=== PATIENT | female | born 1945 | race Hispanic/Latino ===

== ENCOUNTER → 2019-12-16 | Outpatient (CLI) | payer OTHER ==
[~2019-12-16] MED LIST: AMLO2.5T4 PO; CEFU500T67 PO; FLUT16H NS; LISI1TAB28 PO; METF-444 PO; MONT10TA26 PO; OMEP20CA12 PO; PREG50 PO; SITA50TA PO; TRAV2.5D OU
== END | disposition home or self-care (01) ==
LOC: OIH 14:39
PROVIDERS: ATTEND Internal Medicine
DX: M06.4 Inflammatory polyarthropathy (principal)
CPT/HCPCS: 73130

== ENCOUNTER 2023-12-04 14:57 | Emergency (ER) | payer OTHER ==
[~2023-12-04] VITALS: Ht 152.4 cm; Wt 83.5 kg
[~2023-12-04 14:57] MED LIST changes: -LISI1TAB28 PO; +LISI1TAB51 PO; +MONT-39 PO; -MONT10TA26 PO
[2023-12-04] MEDS ORDERED: KETO10TA2 PO (18:24)
[2023-12-04 19:04] VITALS: BP 140/72; PULSE 88; RESP 18; O2SAT 100
== END 2023-12-04 19:10 | disposition home or self-care (01) ==
LOC: EDH 14:57
DX: M25.551 Pain in right hip (principal); I10 Essential (primary) hypertension; E11.9 Type 2 diabetes mellitus without complications; E78.00 Pure hypercholesterolemia, unspecified; Z79.84 Long term (current) use of oral hypoglycemic drugs; Z79.899 Other long term (current) drug therapy; Z98.890 Other specified postprocedural states; Z88.0 Allergy status to penicillin; Z88.8 Allergy status to other drugs, medicaments and biological substances
CPT/HCPCS: 71045; 73521

== ENCOUNTER 2024-04-06 14:54 | Emergency (ER) | payer OTHER ==
[~2024-04-06] VITALS: Ht 152.4 cm; Wt 79.8 kg
[~2024-04-06 14:54] MED LIST changes: +KETO10TA2 PO
[2024-04-06] MEDS ORDERED: KETO10TA2 PO (16:21)
[2024-04-06] MEDS ORDERED: CLIN-141 PO (16:21)
[2024-04-06] MEDS: ketOROlac 30MG VIAL (30MG/ML) IVP ONE (16:23)
[2024-04-06] MEDS: CLINDAMYCIN 150 MG CAP PO STA (16:23)
[2024-04-06 16:29] VITALS: BP 131/70; PULSE 71; RESP 18; TEMP 98.1; O2SAT 97
== END 2024-04-06 16:33 | disposition home or self-care (01) ==
LOC: EDH 14:54
DX: K02.9 Dental caries, unspecified (principal); K08.89 Other specified disorders of teeth and supporting structures; E11.36 Type 2 diabetes mellitus with diabetic cataract; I10 Essential (primary) hypertension; K21.9 Gastro-esophageal reflux disease without esophagitis; Z79.84 Long term (current) use of oral hypoglycemic drugs; Z79.899 Other long term (current) drug therapy; Z88.0 Allergy status to penicillin; Z88.5 Allergy status to narcotic agent; Z88.6 Allergy status to analgesic agent
CPT/HCPCS: 99283; 96374; J1885